=== PATIENT | female | born 1985 | race African-American/Black ===

== ENCOUNTER 2016-07-11 10:00 | Emergency (ER) | payer BC ==
[~2016-07-11 10:00] MED LIST: NO
== END 2016-07-11 10:19 | disposition home or self-care (01) ==
LOC: ER 10:00
DX: J02.9 Acute pharyngitis, unspecified (principal); Z88.1 Allergy status to other antibiotic agents; Z91.018 Allergy to other foods
CPT/HCPCS: 87070; 87880; 99283